=== PATIENT | female | born 1950 ===

== ENCOUNTER 2021-01-13 08:12 | Outpatient (REF) | payer MEDICARE, OTHER, SELFPAY ==
--- NOTE | ~2021-01-13 | XR_ITS ---
EXAMINATION: KNEE X-RAY CLINICAL INFORMATION: Right knee pain COMPARISON: None TECHNIQUE: Standing AP view of both knees and lateral and sunrise view of the right knee FINDINGS: Right knee: There is slight valgus angulation. Bone alignment is otherwise normal. No fracture or dislocation is seen. There is arthritis at the lateral femoral tibial and patellofemoral joints with joint space narrowing and osteophyte formation. There is subchondral cystic change of the patella seen on the lateral view. There is are soft tissue ossifications or calcifications posterior to the knee joint questionable for intra-articular loose bodies. There is no significant suprapatellar joint effusion. Standing AP view of the left knee demonstrates degenerative change at the lateral femoral tibial joint. XR/XR knee standing BI IMPRESSION: Right knee: Arthritis at the lateral femoral tibial patellofemoral joints. Question ossified intra-articular loose bodies.
--- NOTE | ~2021-01-13 | XR_ITS ---
EXAMINATION: KNEE X-RAY CLINICAL INFORMATION: Right knee pain COMPARISON: None TECHNIQUE: Standing AP view of both knees and lateral and sunrise view of the right knee FINDINGS: Right knee: There is slight valgus angulation. Bone alignment is otherwise normal. No fracture or dislocation is seen. There is arthritis at the lateral femoral tibial and patellofemoral joints with joint space narrowing and osteophyte formation. There is subchondral cystic change of the patella seen on the lateral view. There is are soft tissue ossifications or calcifications posterior to the knee joint questionable for intra-articular loose bodies. There is no significant suprapatellar joint effusion. Standing AP view of the left knee demonstrates degenerative change at the lateral femoral tibial joint. XR/XR knee RT 2V IMPRESSION: Right knee: Arthritis at the lateral femoral tibial patellofemoral joints. Question ossified intra-articular loose bodies.
== END 2021-01-13 08:13 | disposition home or self-care (01) ==
LOC: HO.HOSX 08:12
PROVIDERS: Visit Provider Orthopaedic Surgery
DX: M25.561 Pain in right knee (principal); M21.061 Valgus deformity, not elsewhere classified, right knee; M17.0 Bilateral primary osteoarthritis of knee; E11.9 Type 2 diabetes mellitus without complications; E66.9 Obesity, unspecified
CPT/HCPCS: 73560; 73565; 99202

== ENCOUNTER 2023-06-16 09:55 | Outpatient (AMB) | payer MEDICARE, OTHER, SELFPAY ==
[2023-06-16 10:18] VITALS: BMI 46.1
--- NOTE | 2023-06-16 10:18 | MHC.OFFVIS ---
Intake Vital Signs 06/16/23 10:18 Height 5 ft 3 in Weight 260 lb BMI 46.1 Intake Visit Reasons: Newprob-Back pain Intake Note: Alejandra is a 73 year old female who presents today with back pain. She reports a long history of back pain through most of her life. Last june she had an emergent surgery, after this surgery she had severe pain in her back that prevented her from walking. After this she was seen with a hand touch up painter who injected SI joints and it helped her emmensley. Lately she feels that her back has been declining, she has flair ups of sciatica. She takes tylenol and aleve which does help her pain. When her pain is severe she taked Tramadol In 1993 she had a foraminectomy Allergies oseltamivir [From Tamiflu] Allergy (Verified 06/16/23 10:23) Hives shellfish derived Allergy (Verified 06/16/23 10:) Swelling HPI HPI Comments History of Present Illness Details History of DM. Seen by ortho for knee pain last year. Referred from [facility]. While in rehab hospital (after hysterectomy due to cancer and perforated colon, sepsis), had back pain thought to be SI joint related. Could not get up to stand due to pain at that time. Was seen by a hand touch up painter in rehab, and had bilateral SI joint injections on both sides, no fluoroscopy. That removed pain for almost a year, just starting to feel the pain. Pain across the back, right worse. Radiates to ankle. History of lumbar disc; had foraminectomy 1993. He did well, but has residual sciatica that comes/goes. Been quite often lately. Chronic right foot numbness. No foot drop, can't walk on toes, can't walk too long. Current pain score 6-10/10. Treatment done so far: NSAIDs, tylenol therapy - last one was many months ago; PT worsens pain injection - June 2022 surgery - 1993 foraminectomy Retired nurse. History of uterine cancer, on remission, had chemotherapy. Has colostomy. 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 Patient was appropriately conversant and oriented. Good historian. MSK: No specific abnormalities found on inspection of the spine and all extremities. Tender right SI joint, right lumbar paraspinals, right GT. Lumbar ROM was limited with pain on extension. No ligamentous laxity or crepitance. No increased effusion. Straight-leg raising test positive right. FABERE test negative. Gillet test showed stiffness in left SI joint. Prince test is negative. Piriformis test is negative. Strength is 5/5 in all muscle groups tested. No increased tone noted. Neurological: Neurologic examination of the upper and lower extremities was nonfocal with intact sensation, muscle stretch reflexes and without focal motor deficits . Thorne?s negative bilaterally. Gait is without loss of balance. No footdrop when seated. Results Reviewed Results Reviewed: I reviewed records from the following: Orthopedic Assessment & Plan Assessment & Plan (1) Sacroiliac joint dysfunction of both sides: Code(s): M53.3 - Sacrococcygeal disorders, not elsewhere classified (2) Right lumbar radiculitis: Code(s): M54.16 - Radiculopathy, lumbar region (3) Lumbar disc disease: Code(s): M51.9 - Unspecified thoracic, thoracolumbar and lumbosacral intervertebral disc disorder Plan She probably has mechanical SI joint dysfunction, pain worse in the right, asymmetry seen on the left side. However L5 symptoms can manifest as SI joint symptoms as well. Especially with her past history of lumbar disc. She had a recent lumbar MRI done at [facility]. We will obtain that. Results of that would help us decide what kind of injection would be best for her, whether it is an SI joint injection versus L5 TF epidural. Most likely referring her to pain management for the injection. She has done PT in the past which just makes her pain worse. She does her best to exercise at home. Assessment and plan discussed with patient, and patient was agreeable. All questions were answered thoroughly. Michelle White MD, MARCIANO Board Certified, [place] Board [employer] and Rehabilitation (ABPMR) Board Certified, [place] Board of Electrodiagnostic Medicine (ABEM) Coding Level of Care Code New Pt Level 4 (98946) Diagnoses Sacroiliac joint dysfunction of both sides M53.3 Right lumbar radiculitis M54.16 Lumbar disc disease M51.9
== END 2023-06-16 10:51 | disposition home or self-care (01) ==
PROVIDERS: Visit Provider Physical Medicine & Rehabilitation
DX: M53.3 Sacrococcygeal disorders, not elsewhere classified (principal); M54.16 Radiculopathy, lumbar region; M51.9 Unspecified thoracic, thoracolumbar and lumbosacral intervertebral disc disorder
CPT/HCPCS: 99204

== ENCOUNTER → 2023-06-16 09:55 | Outpatient (BNVA) | payer MEDICARE, OTHER, SELFPAY | PROVIDERS: Visit Provider Physical Medicine & Rehabilitation ==

== ENCOUNTER 2023-07-21 11:41 | Outpatient (AMB) | payer MEDICARE, OTHER, SELFPAY ==
--- NOTE | 2023-07-21 11:50 | MHC.OFFVIS ---
Intake Intake Visit Reasons: OV- Back pain Intake Note: Alejandra is a 73 year old female who presents today for a follow up of her lower back pain to discuss possible treatment options/possible pain management referral for injections. She had cortisone shots done in bilateral knees done about a week ago. Allergies oseltamivir [From Tamiflu] Allergy (Verified 07/21/23 11:54) Hives shellfish derived Allergy (Verified 07/21/23 11:54) Swelling HPI HPI Comments History of Present Illness Details History of DM. Seen by ortho for knee pain last year. Referred from [facility]. While in rehab hospital (after hysterectomy due to cancer and perforated colon, sepsis), had back pain thought to be SI joint related. Could not get up to stand due to pain at that time. Was seen by a pilot plant research technician in rehab, and had bilateral SI joint injections on both sides, no fluoroscopy. That removed pain for almost a year, just starting to feel the pain. Pain across the back, right worse. Radiates to ankle. History of lumbar disc; had foraminectomy 1993. He did well, but has residual sciatica that comes/goes. Been quite often lately. Chronic right foot numbness. No foot drop, can't walk on toes, can't walk too long. Current pain score 6-10/10. Denies claudication. Sitting affects pain as much as walking. Treatment done so far: NSAIDs, tylenol therapy - last one was many months ago; PT worsens pain injection - June 2022 surgery - 1993 foraminectomy Retired nurse. History of uterine cancer, on remission, had chemotherapy. Has colostomy. 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 Patient was appropriately conversant and oriented. Good historian. MSK: No specific abnormalities found on inspection of the spine and all extremities. Tender right SI joint, right lumbar paraspinals, right GT. No increased effusion. Straight-leg raising test positive right. FABERE test negative. Strength is 5/5 in all muscle groups tested. No increased tone noted. Neurological: Neurologic examination of the upper and lower extremities was nonfocal with intact sensation, muscle stretch reflexes and without focal motor deficits . Thorne?s negative bilaterally. Gait is without loss of balance. No footdrop when seated. Results Reviewed Results Reviewed: MRI 06/2022 done at [facility] reported severe spinal stenosis L5-S1 with foraminal stenosis Assessment & Plan Assessment & Plan (1) Lumbar spinal stenosis: Code(s): M48.061 - Spinal stenosis, lumbar region without neurogenic claudication Qualifiers: Neurogenic claudication status: without neurogenic claudication Qualified Code(s): M48.061 - Spinal stenosis, lumbar region without neurogenic claudication (2) Right lumbar radiculitis: Code(s): M54.16 - Radiculopathy, lumbar region Plan Chronic recurrent right sided pain, with previous MRI showing spinal stenosis. Discussed treatment options including injection vs surgery. Referring her to Dr. Allen for injection, possibly L5-S1 interlaminar epidural injection or right L5-S1 TFE under fluoroscopy. Referring her to Dr. Caraballo to discuss surgical options for spinal stenosis. She is not looking for further surgery but would be reasonable to discuss options/benefits/risks. Assessment and plan discussed with patient, and patient was agreeable. All questions were answered thoroughly. Total of 30 spent today including chart review, results review, history taking, physical examination, discussion of assessment and plan, and coordination of care. Michelle White MD, MARCIANO Board Certified, [place] Board of Physical [employer] and Rehabilitation (ABPMR) Board Certified, [place] Board of Electrodiagnostic Medicine (ABEM) Orders: Referrals Neurosurgery Referral M48.061 - Spinal stenosis, lumbar region without neurogenic claudication, M54.16 - Radiculopathy, lumbar region Pain Management Referral M48.061 - Spinal stenosis, lumbar region without neurogenic claudication, M54.16 - Radiculopathy, lumbar region Coding Level of Care Code Est Pt Level 4 (01600) Diagnoses Spinal stenosis of lumbar region without neurogenic claudication M48.061 Neurogenic claudication status: without neurogenic claudication Right lumbar radiculitis M54.16
== END 2023-07-21 12:19 | disposition home or self-care (01) ==
PROVIDERS: Visit Provider Physical Medicine & Rehabilitation
DX: M48.061 Spinal stenosis, lumbar region without neurogenic claudication (principal); M54.16 Radiculopathy, lumbar region
CPT/HCPCS: 99214

== ENCOUNTER → 2023-07-21 11:41 | Outpatient (BNVA) | payer MEDICARE, OTHER, SELFPAY | PROVIDERS: Visit Provider Physical Medicine & Rehabilitation | DX: M48.061 Spinal stenosis, lumbar region without neurogenic claudication (principal); M54.16 Radiculopathy, lumbar region | CPT/HCPCS: 99212 ==

== ENCOUNTER 2023-08-31 06:05 | Outpatient (REF) | payer MEDICARE, OTHER, SELFPAY ==
--- NOTE | ~2023-08-31 | FL_ITS ---
EXAMINATION: XR FLUOROSCOPY WITH IMAGES CLINICAL INFORMATION: Radiculopathy, lumbar region. COMPARISON: None available. TECHNIQUE: Fluoroscopy Supervised By: Dr. Sandeep Allen. Fluoroscopy Time: 0.5 minutes. Cumulative Dose: 39.1 mGy. DAP: 0.397 Gycm2. Images: 2. FINDINGS: Image demonstrates needle placement and contrast injection adjacent to the lateral lower lumbar spine. FL/FL guidance in treatment room IMPRESSION: Fluoroscopic guidance for pain management procedure.
== END 2023-08-31 06:06 | disposition home or self-care (01) ==
LOC: CF 06:05
PROVIDERS: Visit Provider Anesthesiology
DX: M54.16 Radiculopathy, lumbar region (principal); M48.061 Spinal stenosis, lumbar region without neurogenic claudication
CPT/HCPCS: 64483; J3301; Q9967

== ENCOUNTER 2023-08-31 08:29 | Outpatient (AMB) | payer MEDICARE, OTHER, SELFPAY ==
--- NOTE | 2023-08-31 08:55 | A.OFFVIS_ITS ---
Intake Vital Signs 08/31/23 08:56 08/31/23 09:38 Height 5 ft 3 in 5 ft 3 in Weight 260 lb 260 lb BMI 46.1 46.1 BP 128/88 140/72 H Blood Pressure Location Lt brachial Lt brachial Position Sitting Sitting Respiration 16 16 Pulse 72 68 Pulse Source Pulse Oximeter Pulse Oximeter Pulse Oximetry (%) 100 98 Oxygen Delivery Method Room Air Room Air Comment pre-op post-op Intake Visit Reasons: R L5-S1 TFESI/LOCAL Allergies oseltamivir [From Tamiflu] Allergy (Verified 08/31/23 09:39) Hives shellfish derived Allergy (Verified 08/31/23 09:39) Swelling [facility] Medical History (Updated 07/21/23 @ 12:22 by Michelle White MD) Lumbar spinal stenosis Right lumbar radiculitis Lumbar disc disease Sacroiliac joint dysfunction of both sides Thyroid disease Acid reflux Diabetes Social History (Updated 01/13/21 @ 13:32 by BERNADINE Atkins) 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 Physical Exam Vital Signs: Last Vital Signs Pulse 68 08/31/23 09:38 Resp 16 08/31/23 09:38 BP 140/72 H 08/31/23 09:38 Pulse Ox 98 08/31/23 09:38 Oxygen Delivery Method Room Air 08/31/23 09:38 BMI result Body Mass Index 46.1 Assessment & Plan Assessment & Plan (1) Lumbar spinal stenosis: Code(s): M48.061 - Spinal stenosis, lumbar region without neurogenic claudication Qualifiers: Neurogenic claudication status: without neurogenic claudication Qualified Code(s): M48.061 - Spinal stenosis, lumbar region without neurogenic claudication (2) Right lumbar radiculitis: Code(s): M54.16 - Radiculopathy, lumbar region Plan Transforaminal epidural steroid injection L5-S1 on the right. THE PATIENT CAME TO THE OPERATING ROOM AFTER OBTAINING INFORMED CONSENT. THE RISKS OF THE PROCEDURE WERE DELINEATED THE RISK OF BLEEDING, INFECTION, PERIPHERAL NERVE DAMAGE , EPIDURAL HEMATOMA , EPIDURAL ABSCESS AND OTHER UNSPECIFIED RISKS. THE PATIENT WAS POSITIONED PRONE ON THE OPERATING TABLE . TIME-OUT WAS OBTAINED DELINEATING CORRECT SIDE AND SITE OF THE PROCEDURE, PATIENT NAME AND DATE OF , NEED OF THE ANTIBIOTIC, RISK OF FIRE. The PATIENT PARTICIPATED IN THE TIME OUT PROCEDURE. LUMBAR AREA OF THE PATIENT WAS PREPPED WITH CHLORAPREP AND DRAPED WITH STERILE DRAPES, STERILELY DRAPED C-ARM WAS BROUGHT OVER THE OPERATING FIELD AND SQ PICTURE OF L5 VERTEBRA WAS DELINEATED ON THE SCREEN. C-ARM WAS TILTED 17? CEPHALAD AND 30 DEGREES TO THE RIGHT TO DEMONSTRATE THE MOST PROMINENT IMAGE OF THE SAP on THE RIGHT. THE IMAGE WAS VERY DIFFICULT TO READ BECAUSE OF EXTENSIVE SPURS AND OSTEOPHITES OBSCURING A PROPER VIEW. OBESITY OF THE PATIENT ALSO CONTRIBUTED TO THE SUBSTANTIALLY COMPROMISED IMAGE. THE LATERAL BORDER OF THE SAP PROJECTION TO THE SKIN WAS CHOSEN A STARTING POINT OF THE INJECTION. 22 GAUGE 5 IN SPINAL NEEDLE WAS INSERTED THROUGH THE SKIN AND STARTED TO ADVANCE TO THE FORAMINA IN ANTERIOR POSTERIOR AND OBLIQUE VIEWS IN TUNNEL VISION FASHION. WHEN ON LATERAL VIEW THE NEEDLE ENTERED THE MOST POSTERIOR AND INFERIOR PORTION OF THE FORAMINA INJECTION OF THE CONTRAST PERFORMED DELINEATING PERINEURAL SPREAD OF THE CONTRAST . AFTER THAT TREATMENT SOLUTION CONTAINING 3 ML OF PRESERVATIVE-FREE LIDOCAINE 1% MIXED WITH KENALOG 40 MG WAS INJECTED INTO THE NEEDLE. UPON COMPLETION OF THE INJECTION THE NEEDLE WAS REMOVED AND STERILE DRESSING WAS APPLIED. PATIENT TOLERATED PROCEDURE WELL SHE WAS AWAKEN TAKEN OUTSIDE OF THE OPERATING ROOM TO PACU WHERE SHE RECOVERED UNEVENTFULLY. SHE WENT HOME WITHOUT IMMEDIATE COMPLICATIONS. Orders: Orders FL guidance in treatment room 08/31/23 M54.16 - Radiculopathy, lumbar region Coding Level of Care Code Procedure Only Diagnoses Spinal stenosis of lumbar region without neurogenic claudication M48.061 Neurogenic claudication status: without neurogenic claudication Right lumbar radiculitis M54.16
[2023-08-31 08:56] VITALS: BP 128/88; PULSE 72; RESP 16; O2SAT 100; BMI 46.1
[2023-08-31 09:38] VITALS: BP 140/72; PULSE 68; RESP 16; O2SAT 98; BMI 46.1
== END 2023-08-31 09:32 | disposition home or self-care (01) ==
LOC: HO.PMCPRC 08:29
PROVIDERS: PCP Internal Medicine; Visit Provider Anesthesiology
DX: M54.16 Radiculopathy, lumbar region (principal)
CPT/HCPCS: 64483

== ENCOUNTER 2023-09-27 10:50 | Outpatient (AMB) | payer MEDICARE, OTHER, SELFPAY ==
--- NOTE | 2023-09-27 10:55 | MHC.OFFVIS ---
Intake Vital Signs 09/27/23 11:03 Height 5 ft 3 in Weight 259 lb BMI 45.9 BP 150/66 H Blood Pressure Location Lt brachial Position Sitting Respiration 12 Pulse 70 Pulse Source Pulse Oximeter Pulse Oximetry (%) 97 Oxygen Delivery Method Room Air Intake Visit Reasons: R L5-S1 TFESI 08/[address] Wallace/lvm Allergies oseltamivir [From Tamiflu] Allergy (Verified 09/27/23 11:05) Hives shellfish derived Allergy (Verified 09/27/23 11:05) Swelling HPI HPI Comments History of Present Illness Details Alejandra is very pleasant 73 years old female who is in my office today for follow-up and evaluation as a new patient. She was referred to my office by Dr. Wallace, our oracle applications analyst for performance of right transforaminal epidural steroid injection L5-S1. The procedure was performed of 08/31/2023, she reports today almost complete relief of her right-sided sciatica pain going down the right lower extremity. However she continues to complain on pain in the axial back in the projection of the lowest lumbar spine and upper pelvis. She thinks that her pain started in 1993 because she is sleep and fell at work. She had foraminotomy in 1994 and her symptoms improved. Current exacerbation she relates to hysterectomy which was performed in February of 2022 as well as exploratory laparotomy which was performed in June of 2022 she had perforation of the colon and she was septic, she has spent a lot of time on the operating table. She was treated with chemotherapy prior to the perforation and she thinks that chemotherapy is the main culprit of perforation. The hysterectomy was performed to remove uterine cancer. She is currently under observation with oncologist who is measuring her Ca 125 on regular basis. In terms of tissue damage she reports her Joan as pounding pinching cramping crushing sharp lacerating hot burning searing spreading and piercing sensation. She had an MRI of lumbar spine in the past which demonstrated at L5-S1 desiccation of the disc central disc protrusion along with facet hypertrophy causing severe spinal canal and severe bilateral neuroforaminal narrowing. This may cause severe compression of exiting L5 nerve roots bilaterally. She also reported that when she was in the rehab facility after the surgery for bowel perforation, she was under care of oracle applications analyst who performed ?an injection in my upper bilateral buttocks ?. This injection she believes was bilateral sacroiliac joint injection however performed blindly.. Past medical history significant for hypertension, diabetes, history of uterine cancer currently cancer patient after hysterectomy, history of exploratory laparotomy secondary to ruptured viscus, history of arthritis. Her hemoglobin A1c is 8.5. Social history she is retired individual she denies smoking cigarettes she stopped 18 years ago she denies drinking alcohol she drinks no caffeinated beverages and she uses no recreational drugs. 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 Review of Systems Const All systems reviewed & are unremarkable except as noted in HPI and below Reports no additional complaints ENT Reports Normal hearing present Card Reports as per HPI Resp Reports no additional complaints GI Reports as per HPI Reports as per HPI Musc Reports as per HPI Neuro Reports Normal hearing present, Denies Abnormal speech present, Denies confusion and Denies Sensory deficit (Neuro) Psych Denies confusion Physical Exam Const General: no acute distress; No confusion Nutritional Appearance: obese morbidly obese Orientation/consciousness: patient oriented x3 and No confusion Eyes General: appearance normal, both eyes and all related structures Pupils: Equal, round and reactive pupils present EOM: EOMs intact bilaterally Neck Neck: Yes full ROM Chest Chest palpation & inspection: normal inspection of the chest Resp Effort & Inspection: normal respiratory effort, able to speak in complete sentences, normal respiratory pattern, no audible wheezes and no cough Cardio Jugular venous distension: no JVD GI Inspection: Yes normal to inspection Back/Spine/Pelvis Other: Morbid obesity., tenderness on palpation bilateral SI joints. Chacorta test is equivocal on the left and positive on the right. Due to presence of colostomy and morbid obesity it is difficult to perform Gaenslen test, pelvic destruction and pelvic compression tests. Fourteen finger test is positive bilaterally. Neuro General: patient oriented x3, gait normal and No confusion Cranial nerves: Yes CN's II-XII intact bilaterally, Yes Equal, round and reactive pupils present, Yes Normal hearing present and Yes Ability to bilaterally elevate shoulders present Speech: No Abnormal speech present Gait exam (Neuro): Normal gait present Motor exam (neuro): 5/5 motor strength present throughout Sensory Exam: No Sensory deficit (Neuro) Extrem General: No pedal edema Psych Speech and movement: Normal speech and movement present Affect: normal affect Attitude: cooperative Thought process: Normal thought process present Thought content: Normal thought content present Insight: Good insight present (Psych) Judgement: Good judgement present (Psych) Assessment & Plan Assessment & Plan (1) Lumbar spinal stenosis: Code(s): M48.061 - Spinal stenosis, lumbar region without neurogenic claudication Qualifiers: Neurogenic claudication status: without neurogenic claudication Qualified Code(s): M48.061 - Spinal stenosis, lumbar region without neurogenic claudication Plan: (2) Lumbar disc disease: Code(s): M51.9 - Unspecified thoracic, thoracolumbar and lumbosacral intervertebral disc disorder Plan: (3) Right lumbar radiculitis: Code(s): M54.16 - Radiculopathy, lumbar region Plan: (4) Sacroiliac joint dysfunction of both sides: Code(s): M53.3 - Sacrococcygeal disorders, not elsewhere classified Plan: Plan Very good results of transforaminal epidural steroid injection L5-S1 which was done on 08/31/2023. The radiculopathy pain radiating to the mid calf of the patient is all but gone. She reports very infrequent radiation of the pain from the back into upper thigh. As of her axial back pain the only way for this patient to establish whether not sacroiliitis is made him come out culprit of her axial back pain in my opinion is to perform sacroiliac joint diagnostic injection. I will schedule her for this injection as soon as possible. I will see this patient to evaluate the results of the injections after the procedure. She is currently cancer patient under observation with oncologist. Coding Level of Care Code New Pt Level 3 (55937) Diagnoses Spinal stenosis of lumbar region without neurogenic claudication M48.061 Neurogenic claudication status: without neurogenic claudication Lumbar disc disease M51.9 Right lumbar radiculitis M54.16 Sacroiliac joint dysfunction of both sides M53.3
[2023-09-27 11:03] VITALS: BP 150/66; PULSE 70; RESP 12; O2SAT 97; BMI 45.9
== END 2023-09-27 12:03 | disposition home or self-care (01) ==
PROVIDERS: PCP Internal Medicine; Referring Provider Physical Medicine & Rehabilitation; Visit Provider Anesthesiology
DX: M48.061 Spinal stenosis, lumbar region without neurogenic claudication (principal); M51.9 Unspecified thoracic, thoracolumbar and lumbosacral intervertebral disc disorder; M54.16 Radiculopathy, lumbar region; M53.3 Sacrococcygeal disorders, not elsewhere classified
CPT/HCPCS: 99213

== ENCOUNTER → 2023-09-27 10:50 | Outpatient (BNVA) | payer MEDICARE, OTHER, SELFPAY | PROVIDERS: PCP Internal Medicine; Visit Provider Anesthesiology | DX: M48.061 Spinal stenosis, lumbar region without neurogenic claudication (principal); M51.9 Unspecified thoracic, thoracolumbar and lumbosacral intervertebral disc disorder; M54.16 Radiculopathy, lumbar region; M53.3 Sacrococcygeal disorders, not elsewhere classified | CPT/HCPCS: 99212 ==